=== PATIENT | female | born 1945 | race Caucasian/White ===

== ENCOUNTER 2020-10-10 05:05 | Day surgery (SDC) | payer OTHER, MEDICARE ==
[2020-10-04 17:23] VITALS: BMI 34.7
[2020-10-10 11:59] VITALS: TEMP 98.2
[2020-10-10 13:11] VITALS: BP 135/85; PULSE 68
== END 2020-10-10 12:55 | disposition home or self-care (01) ==
LOC: JASU-ENDO 05:05
PROVIDERS: ATTEND Internal Medicine Gastroenterology
PROC: 0DBN8ZX Excision of Sigmoid Colon, Via Natural or Artificial Opening Endoscopic, Diagnostic (ICD-10-PCS; principal; 2020-10-10 11:00)
DX: Z12.11 Encounter for screening for malignant neoplasm of colon (principal); D12.5 Benign neoplasm of sigmoid colon; Z86.010 Personal history of colon polyps; K57.30 Diverticulosis of large intestine without perforation or abscess without bleeding; K64.8 Other hemorrhoids; K92.1 Melena

== ENCOUNTER 2020-10-31 07:52 | Day surgery (SDC) | payer OTHER, MEDICARE ==
[2020-10-31] MEDS ORDERED: ONDANSETRON 4 MG/2 ML VIAL IVPUSH PRN (08:28)
[2020-10-31] MEDS ORDERED: oxyCODONE HCL 5 MG TABLET PO PRN ×2 (08:28)
[2020-10-31] MEDS ORDERED: LACTATED RINGERS SOLUTION 1,000 ML IV SCH (08:30)
[2020-10-31] MEDS ORDERED: MIDAZOLAM HCL 2 MG/2 ML SINGLE DOSE VIAL ONE (08:54)
[2020-10-31] MEDS ORDERED: KETOROLAC TROMETHAMINE 30 MG/1 ML VIAL ONE (08:55)
[2020-10-31] MEDS ORDERED: SODIUM CHLORIDE 0.9% P/F 10 ML VIAL IJ ONE (08:55)
[2020-10-31] MEDS ORDERED: ceFAZolin SODIUM 1 GM VIAL ONE (08:55)
[2020-10-31] MEDS ORDERED: LIDOCAINE HCL/PF 2% SDV 5ML VIAL ONE (08:55)
[2020-10-31] MEDS ORDERED: PROPOFOL 20 ML ONE ×3 (09:19)
[2020-10-31 10:46] VITALS: TEMP 97.8
[2020-10-31 11:22] VITALS: BP 138/71; PULSE 61
== END 2020-10-31 11:15 | disposition home or self-care (01) ==
LOC: FASU 07:52
PROVIDERS: ATTEND Orthopaedic Surgery Hand Surgery
PROC: 01N50ZZ Release Median Nerve, Open Approach (ICD-10-PCS; principal; 2020-10-31 09:31)
DX: G56.01 Carpal tunnel syndrome, right upper limb (principal)
CPT/HCPCS: 94760

== ENCOUNTER 2021-01-09 06:12 | Day surgery (SDC) | payer OTHER, MEDICARE ==
[2021-01-01 12:14] VITALS: BMI 35.4
[2021-01-09] MEDS ORDERED: LIDOCAINE HCL 2% (20ML MULTI-DOSE VIAL) ONE (07:10)
[2021-01-09] MEDS ORDERED: LOCK ITEM NR ONE (07:18)
[2021-01-09] MEDS ORDERED: MIDAZOLAM HCL 2 MG/2 ML SINGLE DOSE VIAL ONE (07:29)
[2021-01-09] MEDS ORDERED: PROPOFOL 20 ML ONE ×2 (07:29)
[2021-01-09] MEDS ORDERED: LIDOCAINE HCL/PF 2% SDV 5ML VIAL ONE (07:29)
[2021-01-09] MEDS ORDERED: ONDANSETRON 4 MG/2 ML VIAL ONE (07:58)
[2021-01-09] MEDS ORDERED: ACETAMINOPHEN 325 MG TABLET (FP) PO PRN (08:12)
[2021-01-09] MEDS ORDERED: ONDANSETRON 4 MG/2 ML VIAL IVPUSH PRN (08:12)
[2021-01-09] MEDS ORDERED: oxyCODONE HCL 5 MG TABLET PO PRN (08:12)
[2021-01-09] MEDS ORDERED: LACTATED RINGERS SOLUTION 1,000 ML IV SCH (08:15)
[2021-01-09 09:07] VITALS: TEMP 98.1
[2021-01-09 09:27] VITALS: BP 133/72; PULSE 65
== END 2021-01-09 09:39 | disposition home or self-care (01) ==
LOC: FASU 06:12
PROVIDERS: ATTEND Orthopaedic Surgery Hand Surgery
PROC: 01N50ZZ Release Median Nerve, Open Approach (ICD-10-PCS; principal; 2021-01-09 07:54)
DX: G56.02 Carpal tunnel syndrome, left upper limb (principal)
CPT/HCPCS: 94760

== ENCOUNTER 2022-05-28 06:00 | Day surgery (SDC) | payer OTHER, MEDICARE ==
[2022-05-26 15:05] VITALS: BMI 34.5
[2022-05-28] MEDS ORDERED: DEXAMETHASONE SOD PHOSPHATE 4 MG/1 ML VIAL ONE (07:03)
[2022-05-28] MEDS ORDERED: ONDANSETRON 4 MG/2 ML VIAL ONE (07:03)
[2022-05-28] MEDS ORDERED: PROPOFOL 20 ML ONE (07:04)
[2022-05-28] MEDS ORDERED: MIDAZOLAM HCL 2 MG/2 ML SINGLE DOSE VIAL ONE (07:04)
[2022-05-28] MEDS ORDERED: BUPIVACAINE HCL 50 ML ONE (07:30)
[2022-05-28] MEDS ORDERED: BUPIVACAINE HCL/PF 2.5 MG/ML - 30 ML VIAL IJ ONE (07:30)
[2022-05-28] MEDS ORDERED: LIDOCAINE HCL 2% (20ML MULTI-DOSE VIAL) ONE (07:30)
[2022-05-28] MEDS ORDERED: ePHEDrine SULFATE 50 MG/1 ML AMPULE ONE (07:47)
[2022-05-28] MEDS ORDERED: LIDOCAINE HCL 2% 100 MG/5 ML DISP.SYRIN ONE (07:58)
[2022-05-28] MEDS ORDERED: ACETAMINOPHEN 325 MG TABLET (FP) PO PRN (08:38)
[2022-05-28] MEDS ORDERED: oxyCODONE HCL 5 MG TABLET PO PRN (08:38)
[2022-05-28] MEDS ORDERED: ONDANSETRON 4 MG/2 ML VIAL IVPUSH PRN (08:38)
[2022-05-28] MEDS ORDERED: LACTATED RINGERS SOLUTION 1,000 ML IV SCH (08:45)
[2022-05-28 09:09] VITALS: TEMP 97.9
[2022-05-28] MEDS ORDERED: ACETAMINOPHEN 325 MG TABLET (FP) ONE (09:29)
[2022-05-28 09:48] VITALS: BP 138/88; PULSE 81; RESP 16
== END 2022-05-28 09:49 | disposition home or self-care (01) ==
LOC: FASU 06:00
PROVIDERS: ATTEND Orthopaedic Surgery Hand Surgery
PROC: 0JBG0ZZ Excision of Right Lower Arm Subcutaneous Tissue and Fascia, Open Approach (ICD-10-PCS; principal; 2022-05-28 08:06)
DX: E83.59 Other disorders of calcium metabolism (principal); R22.32 Localized swelling, mass and lump, left upper limb
CPT/HCPCS: 88305-TC; 94760